=== PATIENT | male | born 1960 | race Caucasian/White ===

== ENCOUNTER 2021-03-10 12:32 | Inpatient (IN) | payer BC ==
[2021-03-10 13:04] VITALS: BMI 33.9
[2021-03-10] MEDS ORDERED: BISMUTH SUBSALICYLATE 524 MG/30 ML PO PRN (13:24)
[2021-03-10] MEDS ORDERED: LORazepam 1 MG TABLET PO PRN (13:24)
[2021-03-10] MEDS ORDERED: MAGNESIUM HYDROX 2400MG/30ML ORAL SUSPENSION 30 ML CUP PO PRN (13:24)
[2021-03-10] MEDS ORDERED: MAGNESIUM CITRATE 300 ML BOTTLE PO PRN (13:24)
[2021-03-10] MEDS ORDERED: ONDANSETRON *ODT* 4 MG TABLET SL PRN (13:24)
[2021-03-10] MEDS ORDERED: ACETAMINOPHEN 325 MG TABLET (FP) PO PRN ×2 (13:24)
[2021-03-10] MEDS ORDERED: MENTHOL/PHENOL 1 EACH UD MM PRN (13:24)
[2021-03-10] MEDS: IBUPROFEN 400 MG TABLET (FP) PO PRN (15:36)
[2021-03-10] MEDS: METHOCARBAMOL 500 MG TABLET PO PRN ×2 (15:38→22:14)
[2021-03-10] MEDS: MAG HYDROX/AL HYDROX/SIMETH 30 ML UNIT-DOSE CUP PO PRN (15:40)
[2021-03-10] MEDS: LORazepam 2 MG TABLET PO SCH ×2 (17:55→22:13)
[2021-03-10] MEDS: MELATONIN 5 MG TABLETS PO SCH (22:13)
[2021-03-10] MEDS: THIAMINE HCL 100 MG TABLET (FP) PO SCH (22:13)
[2021-03-11] MEDS: LORazepam 2 MG TABLET PO SCH ×4 (05:58→22:50)
[2021-03-11] MEDS: METHOCARBAMOL 500 MG TABLET PO PRN ×3 (05:59→22:50)
[2021-03-11 10:19] LABS: HEMATOCRIT 47.7 % (35.4-49); HEMOGLOBIN 16.2 GM/dL (11.7-16.9); MCH 33.6 pg (25.7-33.7); MEAN PLT VOLUME 9.2 fl (7.5-11.1); PLATELET COUNT 145 10^3/uL (134-434); RBC 4.82 M/mm3 (4.00-5.60); RDW 14.6 % (11.9-15.9); WHITE BLOOD COUNT 7.4 K/mm3 (4.0-10.0)
[2021-03-11 10:25] LABS: CALCIUM 8.8 mg/dL (8.5-10.1)
[2021-03-11 10:26] LABS: ALBUMIN 3.8 g/dl (3.4-5.0)
[2021-03-11 10:29] LABS: CREATININE 0.8 mg/dL (0.55-1.3)
[2021-03-11] MEDS: PRENATAL VITAMINS W/ FOLIC ACID TABLET (FP) PO SCH (10:30)
[2021-03-11 10:31] LABS: BILIRUBIN,TOTAL 2.4 mg/dL (0.2-1); TOT PROT 6.8 g/dl (6.4-8.2)
[2021-03-11] MEDS: MAG HYDROX/AL HYDROX/SIMETH 30 ML UNIT-DOSE CUP PO PRN (10:31)
[2021-03-11] MEDS: hydrOXYzine PAMOATE 25 MG CAPSULE (FP) PO PRN (18:12)
[2021-03-11] MEDS: MELATONIN 5 MG TABLETS PO SCH (22:50)
[2021-03-11] MEDS: THIAMINE HCL 100 MG TABLET (FP) PO SCH (22:50)
[2021-03-12] MEDS: METHOCARBAMOL 500 MG TABLET PO PRN ×2 (06:01→22:34)
[2021-03-12] MEDS: LORazepam 1 MG TABLET PO SCH ×4 (06:01→22:33)
[2021-03-12] MEDS: IBUPROFEN 400 MG TABLET (FP) PO PRN (09:38)
[2021-03-12] MEDS: PRENATAL VITAMINS W/ FOLIC ACID TABLET (FP) PO SCH (10:18)
[2021-03-12] MEDS: MELATONIN 5 MG TABLETS PO SCH (22:33)
[2021-03-12] MEDS: THIAMINE HCL 100 MG TABLET (FP) PO SCH (22:33)
[2021-03-12] MEDS: hydrOXYzine PAMOATE 25 MG CAPSULE (FP) PO PRN (22:34)
[2021-03-13] MEDS ORDERED: LORazepam 0.5 MG TABLET PO PRN
[2021-03-13] MEDS: LORazepam 0.5 MG TABLET PO SCH ×4 (05:38→22:23)
[2021-03-13] MEDS: METHOCARBAMOL 500 MG TABLET PO PRN ×2 (05:39→22:25)
[2021-03-13] MEDS: PRENATAL VITAMINS W/ FOLIC ACID TABLET (FP) PO SCH (10:05)
[2021-03-13] MEDS: hydrOXYzine PAMOATE 25 MG CAPSULE (FP) PO PRN (10:06)
[2021-03-13] MEDS: IBUPROFEN 400 MG TABLET (FP) PO PRN ×2 (10:07→22:25)
[2021-03-13] MEDS: MAG HYDROX/AL HYDROX/SIMETH 30 ML UNIT-DOSE CUP PO PRN (17:58)
[2021-03-13] MEDS: THIAMINE HCL 100 MG TABLET (FP) PO SCH (22:23)
[2021-03-13] MEDS: MELATONIN 5 MG TABLETS PO SCH (22:26)
[2021-03-14] MEDS ORDERED: LORazepam 0.5 MG TABLET PO ONE (05:00)
[2021-03-14 09:05] VITALS: BP 128/76; PULSE 76; TEMP 97.2
[2021-03-14] MEDS: PRENATAL VITAMINS W/ FOLIC ACID TABLET (FP) PO SCH (09:25)
[2021-03-14] MEDS ORDERED: diazePAM 5 MG TABLET PO ONE (11:38)
== END 2021-03-14 12:46 | disposition home or self-care (01) | DRG 775 ==
LOC: YASAS 12:32 → Y3N 14:16
PROVIDERS: ADMIT Allergy & Immunology; ATTEND Allergy & Immunology
PROC: HZ2ZZZZ Detoxification Services for Substance Abuse Treatment (ICD-10-PCS; principal; 2021-03-10)
DX: F10.230 Alcohol dependence with withdrawal, uncomplicated (principal); F10.24 Alcohol dependence with alcohol-induced mood disorder; I10 Essential (primary) hypertension; K21.9 Gastro-esophageal reflux disease without esophagitis; E66.9 Obesity, unspecified; Z68.33 Body mass index [BMI] 33.0-33.9, adult; M19.90 Unspecified osteoarthritis, unspecified site; Z96.651 Presence of right artificial knee joint; Z56.0 Unemployment, unspecified
CPT/HCPCS: 36415; 80053; 85027; 86780; C9803; U0003; U0005